=== PATIENT | female | born 1960 | race Caucasian/White ===

== ENCOUNTER → 2023-10-01 17:59 | Outpatient (REF) | payer BC, SELFPAY | LOC: WDC 17:59 | PROVIDERS: ATTENDING PHYSICIAN Nurse Practitioner Family; FAMILY PHYSICIAN Family Medicine | DX: Z12.31 Encounter for screening mammogram for malignant neoplasm of breast (principal) | CPT/HCPCS: 77063; 77067 ==

== ENCOUNTER → 2024-09-15 14:42 | Outpatient (REF) | payer BC, SELFPAY | LOC: RAD 14:42 | PROVIDERS: ATTENDING PHYSICIAN Family Medicine | DX: G44.209 Tension-type headache, unspecified, not intractable (principal) | CPT/HCPCS: 72050 ==

== ENCOUNTER → 2025-03-20 09:29 | Outpatient (REF) | payer BC, SELFPAY | LOC: HWRAD 09:29 | PROVIDERS: ATTENDING PHYSICIAN Nurse Practitioner; FAMILY PHYSICIAN Family Medicine; REFERRING PHYSICIAN Internal Medicine | DX: K76.0 Fatty (change of) liver, not elsewhere classified (principal); R79.89 Other specified abnormal findings of blood chemistry | CPT/HCPCS: 76700 ==

== ENCOUNTER 2025-05-06 06:31 | Day surgery (SDC) | payer BC, SELFPAY ==
[2025-05-06 08:49] LABS: Glucose - Point of Care 91 mg/dl (70-99)
== END 2025-05-06 10:27 | disposition home or self-care (01) ==
LOC: GI 06:31
PROVIDERS: ATTENDING PHYSICIAN Internal Medicine
DX: Z12.11 Encounter for screening for malignant neoplasm of colon (principal); D12.2 Benign neoplasm of ascending colon; D12.3 Benign neoplasm of transverse colon; D12.4 Benign neoplasm of descending colon; K63.89 Other specified diseases of intestine; K57.30 Diverticulosis of large intestine without perforation or abscess without bleeding; K64.9 Unspecified hemorrhoids; Z86.0101 Personal history of adenomatous and serrated colon polyps
CPT/HCPCS: 45385; 45380; 82962; 88305